=== PATIENT | female | born 1940 | race Native Hawaiian/Other Pacific Islander ===

== ENCOUNTER 2017-10-12 20:12 | Outpatient (CLI) | payer OTHER ==
[~2017-10-12 20:12] MED LIST: AMLO2.5T PO; MEVACOR40 MG PO
== END 2017-10-12 20:22 | disposition short-term general hospital (02) ==
LOC: AMB 20:12
DX: R51 Headache (principal); W17.89XA Other fall from one level to another, initial encounter; Y92.091 Bathroom in other non-institutional residence as the place of occurrence of the external cause
CPT/HCPCS: A0425; A0429

== ENCOUNTER 2017-10-12 20:39 | Emergency (ER) | payer OTHER ==
[~2017-10-12] VITALS: Ht 165.1 cm; Wt 72.1 kg
[2017-10-12 22:00] VITALS: BP 135/80; TEMP 97.5
== END 2017-10-12 22:00 | disposition home or self-care (01) ==
LOC: ED 20:39
PROC: 0HQ0XZZ Repair Scalp Skin, External Approach (ICD-10-PCS; principal; 2017-10-12)
DX: S00.03XA Contusion of scalp, initial encounter (principal); S01.01XA Laceration without foreign body of scalp, initial encounter; W01.198A Fall on same level from slipping, tripping and stumbling with subsequent striking against other object, initial encounter; Y92.89 Other specified places as the place of occurrence of the external cause
CPT/HCPCS: 99283; J7040

== ENCOUNTER 2020-07-03 01:15 | Inpatient (IN) | payer OTHER ==
[~2020-07-03] VITALS: Ht 157.5 cm; Wt 57.7 kg
[2020-07-03] VITALS (9 sets, daily range): BP systolic 113–136; BP diastolic 47–72; TEMP 97.7–99; Ht 157.5 cm; Wt 57.7 kg
[2020-07-03 02:28] LABS: PLATELET COUNT 300 K/uL (152-353)
[2020-07-03 02:36] LABS: PARTIAL THROMBOPLASTIN TIME 22.3 SECONDS (24.5-33.6)
[2020-07-03 02:40] LABS: POTASSIUM 4.3 mmol/L (3.6-5.2)
[2020-07-03] MEDS ORDERED: HYZAAR1 TA1 PO (05:47)
[2020-07-03] MEDS ORDERED: PANTOPRAZOLE 40MG TA PO (05:50)
[2020-07-03] MEDS ORDERED: ASA LOW DOSE81 MG PO (05:53)
== END 2020-07-03 17:40 | disposition short-term general hospital (02) | DRG 699 ==
LOC: ED 01:15 → MED/SURG 03:30
PROVIDERS: ADMIT Hospitalist; ATTEND Internal Medicine
DX: N32.89 Other specified disorders of bladder (principal); N13.1 Hydronephrosis with ureteral stricture, not elsewhere classified; N17.8 Other acute kidney failure; N39.0 Urinary tract infection, site not specified; I11.0 Hypertensive heart disease with heart failure; E78.49 Other hyperlipidemia; I50.9 Heart failure, unspecified; K21.9 Gastro-esophageal reflux disease without esophagitis; M15.8 Other polyosteoarthritis
CPT/HCPCS: 36415; 80053; 81000; 82150; 83690; 85027; 85610; 85730; 87086; 87088; 87635; 96360; 96365; 96366; 96375; 99284; J1650; J1956; J2270; J2405; J3490; U0003

== ENCOUNTER 2020-08-06 10:54 | Outpatient (CLI) | payer OTHER ==
[~2020-08-06 10:54] MED LIST changes: +ASA LOW DOSE81 MG PO; +HYZAAR1 TA1 PO; +PANTOPRAZOLE 40MG TA PO
[2020-08-06 12:12] LABS: PLATELET COUNT 470 K/uL (152-353)
[2020-08-06 12:14] LABS: POTASSIUM 4.1 mmol/L (3.6-5.2)
== END 2020-08-06 19:36 | disposition home or self-care (01) ==
LOC: LAB 10:54
PROVIDERS: ATTEND Internal Medicine
DX: D64.89 Other specified anemias (principal)
CPT/HCPCS: 80053; 85027

== ENCOUNTER 2020-08-12 13:36 | Outpatient (CLI) | payer OTHER ==
[2020-08-12 14:32] LABS: POTASSIUM 3.3 mmol/L (3.6-5.2)
[2020-08-12 15:06] LABS: PLATELET COUNT 464 K/uL (152-353)
== END 2020-08-12 20:16 | disposition home or self-care (01) ==
LOC: LABW 13:36
PROVIDERS: ATTEND Internal Medicine Hematology & Oncology
DX: C52 Malignant neoplasm of vagina (principal); C67.4 Malignant neoplasm of posterior wall of bladder; N18.9 Chronic kidney disease, unspecified; R91.8 Other nonspecific abnormal finding of lung field
CPT/HCPCS: 36415; 80053; 85027; 86304

== ENCOUNTER 2020-08-29 15:38 | Outpatient (CLI) | payer OTHER ==
[2020-08-29 16:04] LABS: PLATELET COUNT 534 K/uL (152-353)
[2020-08-29 16:17] LABS: POTASSIUM 3.5 mmol/L (3.6-5.2)
== END 2020-08-29 19:28 | disposition home or self-care (01) ==
LOC: LABW 15:38
PROVIDERS: ATTEND Student in an Organized Health Care Education/Training Program
DX: N18.5 Chronic kidney disease, stage 5 (principal); Z79.899 Other long term (current) drug therapy
CPT/HCPCS: 36415; 80053; 81000; 82306; 82330; 82570; 83036; 83735; 83970; 84100; 84155; 85027

== ENCOUNTER 2020-09-06 17:02 | Emergency (ER) | payer OTHER ==
[~2020-09-06] VITALS: Ht 157.5 cm; Wt 57.6 kg
[2020-09-06 17:08] VITALS: TEMP 97.5
[2020-09-06 18:14] VITALS: BP 105/56
== END 2020-09-06 18:15 | disposition home or self-care (01) ==
LOC: ED 17:02
DX: Z93.6 Other artificial openings of urinary tract status (principal); Z48.01 Encounter for change or removal of surgical wound dressing
CPT/HCPCS: 99282

== ENCOUNTER → 2020-09-28 | Outpatient (CLI) | payer OTHER ==
[2020-09-28 10:21] LABS: PLATELET COUNT 542 K/uL (152-353)
[2020-09-28 10:35] LABS: POTASSIUM 3.7 mmol/L (3.6-5.2)
== END ==
LOC: LABW 09:29
PROVIDERS: ATTEND Student in an Organized Health Care Education/Training Program
DX: R82.998 Other abnormal findings in urine (principal); Z79.899 Other long term (current) drug therapy
CPT/HCPCS: 36415; 80053; 81000; 82306; 82330; 82570; 83036; 83735; 83970; 84100; 84155; 85027; 87077; 87086; 87088

== ENCOUNTER 2020-11-28 19:54 | Emergency (ER) | payer OTHER | END 2020-11-28 21:45 | disposition home or self-care (01) | LOC: ED 19:54 | DX: N99.89 Other postprocedural complications and disorders of genitourinary system (principal); Y82.8 Other medical devices associated with adverse incidents; Y83.8 Other surgical procedures as the cause of abnormal reaction of the patient, or of later complication, without mention of misadventure at the time of the procedure | CPT/HCPCS: 99282 ==

== ENCOUNTER 2020-12-24 18:00 | Outpatient (CLI) | payer OTHER ==
[2020-12-24 19:51] LABS: POTASSIUM 3.9 mmol/L (3.6-5.2)
== END 2020-12-24 21:48 | disposition home or self-care (01) ==
LOC: LABW 18:00
PROVIDERS: ATTEND Student in an Organized Health Care Education/Training Program
DX: N17.8 Other acute kidney failure (principal); D63.1 Anemia in chronic kidney disease; C67.9 Malignant neoplasm of bladder, unspecified; N18.32 Chronic kidney disease, stage 3b; N13.39 Other hydronephrosis; I12.9 Hypertensive chronic kidney disease with stage 1 through stage 4 chronic kidney disease, or unspecified chronic kidney disease; R82.998 Other abnormal findings in urine
CPT/HCPCS: 36415; 80053; 81000; 82306; 82570; 83970; 84155; 85018; 87088

== ENCOUNTER 2021-01-28 14:09 | Outpatient (CLI) | payer OTHER ==
[2021-01-28 14:56] LABS: POTASSIUM 4.2 mmol/L (3.6-5.2)
== END 2021-01-28 21:16 | disposition home or self-care (01) ==
LOC: LAB 14:09
PROVIDERS: ATTEND Student in an Organized Health Care Education/Training Program
DX: N17.9 Acute kidney failure, unspecified (principal); D63.1 Anemia in chronic kidney disease; C67.9 Malignant neoplasm of bladder, unspecified; I10 Essential (primary) hypertension; N18.32 Chronic kidney disease, stage 3b; N13.30 Unspecified hydronephrosis; R80.9 Proteinuria, unspecified; E55.9 Vitamin D deficiency, unspecified; R82.81 Pyuria
CPT/HCPCS: 80053; 81000; 82306; 82570; 84155; 85018; 87077; 87086; 87088; 87186

== ENCOUNTER 2021-03-03 11:40 | Outpatient (CLI) | payer OTHER ==
[2021-03-03 12:49] LABS: POTASSIUM 3.9 mmol/L (3.6-5.2)
== END 2021-03-03 20:11 | disposition home or self-care (01) ==
LOC: LAB 11:40
PROVIDERS: ATTEND Student in an Organized Health Care Education/Training Program
DX: N17.9 Acute kidney failure, unspecified (principal); D63.1 Anemia in chronic kidney disease; C67.9 Malignant neoplasm of bladder, unspecified; N18.32 Chronic kidney disease, stage 3b; N13.39 Other hydronephrosis; R80.8 Other proteinuria; E55.9 Vitamin D deficiency, unspecified; R82.81 Pyuria; I12.9 Hypertensive chronic kidney disease with stage 1 through stage 4 chronic kidney disease, or unspecified chronic kidney disease
CPT/HCPCS: 80053; 81000; 82306; 82570; 84155; 85014; 85018; 87077; 87086; 87088; 87186

== ENCOUNTER 2021-04-12 13:09 | Emergency (ER) | payer OTHER ==
[~2021-04-12] VITALS: Ht 157.5 cm; Wt 57.6 kg
[2021-04-12 13:47] LABS: PLATELET COUNT 412 K/uL (152-353)
[2021-04-12 13:57] LABS: POTASSIUM 4.1 mmol/L (3.6-5.2)
[2021-04-12 15:00] VITALS: TEMP 97.9
[2021-04-12 15:37] VITALS: BP 106/53
[2021-04-13 06:48] LABS: PARTIAL THROMBOPLASTIN TIME 26.2 SECONDS (24.5-33.6)
== END 2021-04-12 15:37 | disposition short-term general hospital (02) ==
LOC: ED 13:09
PROVIDERS: Hospitalist
DX: C67.9 Malignant neoplasm of bladder, unspecified (principal); N39.0 Urinary tract infection, site not specified; N17.8 Other acute kidney failure; N18.9 Chronic kidney disease, unspecified; E86.0 Dehydration; Z20.822 Contact with and (suspected) exposure to COVID-19
CPT/HCPCS: 80053; 81000; 82550; 83605; 83880; 84484; 85027; 85610; 85730; 87077; 87086; 87088; 87186; 87635; 93005; 96360; 96361; 96365; 96366; 99284; J1956; U0003